=== PATIENT | female | born 1940 | race Caucasian/White ===

== ENCOUNTER 2021-10-02 06:02 | Emergency (ER) | payer MEDICARE ==
[~2021-10-02] VITALS: Ht 154.9 cm; Wt 61.4 kg
[2021-10-02 06:19] VITALS: BP 121/80
[2021-10-02] MEDS ORDERED: LIDOcaine 5% patch TP STA (09:54)
[2021-10-02] MEDS ORDERED: acetaminophen 325mg tablet PO ONE (09:55)
[2021-10-02] MEDS ORDERED: LIDO700A32 TOP (10:59)
== END 2021-10-02 11:42 | disposition home or self-care (01) ==
LOC: ER 06:03
DX: M54.41 Lumbago with sciatica, right side (principal); E11.9 Type 2 diabetes mellitus without complications
CPT/HCPCS: 72100; 73502; 99284